=== PATIENT | female | born 1950 | race Caucasian/White ===

== ENCOUNTER 2018-10-06 18:59 | Emergency (ER) | payer MEDICARE ==
[~2018-10-06] VITALS: Ht 172.7 cm; Wt 95.3 kg
[2018-10-06] MEDS ORDERED: FUROSEMIDE 40 MG/4 ML VIAL. IVP ONE (19:30)
[2018-10-06] MEDS ORDERED: DULO60CA6 PO (19:43)
[2018-10-06] MEDS ORDERED: BUPR300T4 PO (19:44)
[2018-10-06] MEDS ORDERED: SIMV20TA3 PO (19:45)
[2018-10-06] MEDS ORDERED: levamir (19:47)
[2018-10-06] MEDS ORDERED: INSU100V SQ (19:47)
[2018-10-06 20:22] LABS: BASO # 0.1 x10^3/uL (0.0-0.2); BASO % 1 % (0-3); EOS # 0.2 x10^3/uL (0.0-0.7); EOS % 3 % (0-3); HEMATOCRIT 32.2 % (36.0-47.0); HEMOGLOBIN 10.5 g/dL (12.0-15.5); LYMPH # 1.3 x10^3/uL (1.0-4.8); LYMPH % 20 % (24-48); MEAN CORPUSCULAR HEMOGLOBIN 27 pg (25-35); MEAN CORPUSCULAR HGB CONC 33 g/dL (31-37); MEAN CORPUSCULAR VOLUME 83 fL (79-100); MONO # 0.4 x10^3/uL (0.0-1.1); MONO % 7 % (0-9); NEUT # 4.7 x10^3uL (1.8-7.7); NEUT % 70 % (31-73); PLATELET COUNT 264 x10^3/uL (140-400); RED BLOOD COUNT 3.88 x10^6/uL (3.50-5.40); RED CELL DISTRIBUTION WIDTH 15.6 % (11.5-14.5); WHITE BLOOD COUNT 6.7 x10^3/uL (4.0-11.0)
--- NOTE | 2018-10-06 20:27 | RAD ---
INDICATION: bilat feet swelling x 3 days COMPARISON: None. TECHNIQUE: Grayscale, color and doppler ultrasound images were obtained of the bilateral lower extremity venous vasculature. RIGHT: No thrombus identified in the common femoral vein, femoral vein, popliteal vein or visualized calf veins. LEFT: No thrombus identified in the common femoral vein, femoral vein, popliteal vein or visualized calf veins. IMPRESSION: 1. No thrombus identified in deep venous system of bilateral lower extremities. Electronically signed by: Eric Redd MD (10/06/2018 8:24 PM) [facility]
--- NOTE | 2018-10-06 20:31 | PHYS DOC ---
Past Medical History Past Medical History: Anxiety, Depression, Diabetes-Type II, High Cholesterol Additional Past Medical Histor: chronic knee pain Past Surgical History: No Surgical History Alcohol Use: None Drug Use: None Adult General Chief Complaint Chief Complaint: LOWER EXTREMITY SWELLING HPI HPI 68-year-old female presents with lower extremity edema. She states that this is been ongoing for a couple of days. States it's worse today. She denies any shortness of breath. She denies dyspnea on exertion. She denies any chest pain. She states both feet seemed to be swollen equally. She states it seems like maybe the right calf is more swollen than the left. She does take blood pressure medicine but it's protective for her kidney secondary to her diabetes. She's not had a history of high blood pressure. Review of Systems Review of Systems Constitutional: Denies fever or chills [] Eyes: Denies change in visual acuity, redness, or eye pain [] HENT: Denies nasal congestion or sore throat [] Respiratory: Denies cough or shortness of breath [] Cardiovascular: No additional information not addressed in HPI [] GI: Denies abdominal pain, nausea, vomiting, bloody stools or diarrhea [] : Denies dysuria or hematuria [] Musculoskeletal: Per history of present illness[] Integument: Denies rash or skin lesions [] Neurologic: Denies headache, focal weakness or sensory changes [] Endocrine: Denies polyuria or polydipsia [] All other systems were reviewed and found to be within normal limits, except as documented in this note. Current Medications Current Medications Current Medications Medications (Trade) Dose Ordered Sig/[facility] Start Time Stop Time Status Last Admin Dose Admin Furosemide (Lasix) 40 mg 1X ONCE 10/06/18 19:30 10/06/18 19:50 DC 10/06/18 20:20 40 MG Ibuprofen (Motrin) 400 mg 1X ONCE 10/06/18 22:00 10/06/18 22:01 DC 10/06/18 21:40 400 MG Allergies Allergies Allergies Coded Allergies Type Severity Reaction Last Updated Verified Sulfa (Sulfonamide Antibiotics) Adverse Reaction Mild n/v 10/06/18 Yes Physical Exam Physical Exam Constitutional: Well developed, well nourished, no acute distress, non-toxic appearance. [] HENT: Normocephalic, atraumatic, bilateral external ears normal, oropharynx moist, no oral exudates, nose normal. [] Eyes: PERRLA, EOMI, conjunctiva normal, no discharge. [] Neck: Normal range of motion, no tenderness, supple, no stridor. [] Cardiovascular:Heart rate regular rhythm, no murmur [] Lungs & Thorax: Bilateral breath sounds clear to auscultation [] Abdomen: Bowel sounds normal, soft, no tenderness, no masses, no pulsatile masses. [] Skin: Warm, dry, no erythema, no rash. [] Back: No tenderness, no CVA tenderness. [] Extremities: Trace lower extremity edema equal bilaterally the right calf is slightly swollen compared to the left. [] Neurologic: Alert and oriented X 3, normal motor function, normal sensory function, no focal deficits noted. [] Psychologic: Anxious. [] Current Patient Data Vital Signs Vital Signs Date Time Temp Pulse Resp B/P (MAP) Pulse Ox O2 Delivery O2 Flow Rate FiO2 10/06/18 21:15 102 20 188/92 (124) 93 Room Air 10/06/18 19:10 98.1 98.1 Lab Values Laboratory Tests Test 10/06/18 20:14 White Blood Count 6.7 x10^3/uL (4.0-11.0) Red Blood Count 3.88 x10^6/uL (3.50-5.40) Hemoglobin 10.5 g/dL (12.0-15.5) L Hematocrit 32.2 % (36.0-47.0) L Mean Corpuscular Volume 83 fL (79-100) Mean Corpuscular Hemoglobin 27 pg (25-35) Mean Corpuscular Hemoglobin Concent 33 g/dL (31-37) Red Cell Distribution Width 15.6 % (11.5-14.5) H Platelet Count 264 x10^3/uL (140-400) Neutrophils (%) (Auto) 70 % (31-73) Lymphocytes (%) (Auto) 20 % (24-48) L Monocytes (%) (Auto) 7 % (0-9) Eosinophils (%) (Auto) 3 % (0-3) Basophils (%) (Auto) 1 % (0-3) Neutrophils # (Auto) 4.7 x10^3uL (1.8-7.7) Lymphocytes # (Auto) 1.3 x10^3/uL (1.0-4.8) Monocytes # (Auto) 0.4 x10^3/uL (0.0-1.1) Eosinophils # (Auto) 0.2 x10^3/uL (0.0-0.7) Basophils # (Auto) 0.1 x10^3/uL (0.0-0.2) Sodium Level 142 mmol/L (136-145) Potassium Level 3.2 mmol/L (3.5-5.1) L Chloride Level 104 mmol/L (98-107) Carbon Dioxide Level 26 mmol/L (21-32) Anion Gap 12 (6-14) Blood Urea Nitrogen 16 mg/dL (7-20) Creatinine 1.0 mg/dL (0.6-1.0) Estimated GFR (Cockcroft-Gault) 55.1 BUN/Creatinine Ratio 16 (6-20) Glucose Level 153 mg/dL (70-99) H Calcium Level 8.5 mg/dL (8.5-10.1) Total Bilirubin 0.4 mg/dL (0.2-1.0) Aspartate Amino Transferase (AST) 15 U/L (15-37) Alanine Aminotransferase (ALT) 15 U/L (14-59) Alkaline Phosphatase 72 U/L (46-116) Troponin I Quantitative < 0.017 ng/mL (0.000-0.055) AF-Kkz-H-Type Natriuretic Peptide 196 pg/mL (0-124) H Total Protein 6.5 g/dL (6.4-8.2) Albumin 3.0 g/dL (3.4-5.0) L Albumin/Globulin Ratio 0.9 (1.0-1.7) L Laboratory Tests 10/06/18 20:14 Laboratory Tests 10/06/18 20:14 EKG EKG [] Radiology/Procedures Radiology/Procedures [] Impressions: PROCEDURE: VENOUS LOWER EXT BILATERAL INDICATION: bilat feet swelling x 3 days COMPARISON: None. TECHNIQUE: Grayscale, color and doppler ultrasound images were obtained of the bilateral lower extremity venous vasculature. RIGHT: No thrombus identified in the common femoral vein, femoral vein, popliteal vein or visualized calf veins. LEFT: No thrombus identified in the common femoral vein, femoral vein, popliteal vein or visualized calf veins. IMPRESSION: 1. No thrombus identified in deep venous system of bilateral lower extremities. Course & Med Decision Making Course & Med Decision Making Pertinent Labs and Imaging studies reviewed. (See chart for details) [] Dragon Disclaimer Dragon Disclaimer This electronic medical record was generated, in whole or in part, using a voice recognition dictation system. Departure Departure Impression: Primary Impression: Peripheral edema Disposition: HOME, SELF-CARE Condition: IMPROVED Referrals: LINDA SANCHEZ DO (PCP) Patient Instructions: Peripheral Edema Additional Instructions: Return to the emergency department with any new or concerning symptoms CODY MILLAN DO Oct 06, 2018 20:31
[2018-10-06 20:33] LABS: CALCIUM 8.5 mg/dL (8.5-10.1); GFR 55.1; POTASSIUM 3.2 mmol/L (3.5-5.1)
[2018-10-06 20:38] LABS: ALBUMIN/GLOBULIN RATIO 0.9 (1.0-1.7); TOTAL BILIRUBIN 0.4 mg/dL (0.2-1.0); TOTAL PROTEIN 6.5 g/dL (6.4-8.2)
[2018-10-06 21:15] VITALS: BP 188/92
[2018-10-06] MEDS ORDERED: IBUPROFEN 400 MG TABLET. PO ONE (22:00)
--- NOTE | 2018-10-07 07:08 | EKG ---
[facility] [address] [place] [address] Test Date: 2018-10-06 Test Time: 19:32:39 Pat Name: CHAPIS REDD Department: Room: Gender: F Integration Lead: : 1950 Requested By: CODY MILLAN Order Number: [id number] Reading MD: Lamberto Murray MD Measurements Intervals [place] Rate: 100 P: 15 MA: 124 QRS: 63 QRSD: 94 T: 39 QT: 356 QTc: 462 Interpretive Statements SINUS TACHYCARDIA Electronically Signed On 10-18-2018 10:04:14 CDT by Lamberto Murray MD
== END 2018-10-06 22:00 | disposition home or self-care (01) ==
LOC: ER 18:59
DX: R60.0 Localized edema (principal); F41.9 Anxiety disorder, unspecified; F32.9 Major depressive disorder, single episode, unspecified; E11.9 Type 2 diabetes mellitus without complications; E78.00 Pure hypercholesterolemia, unspecified; G89.29 Other chronic pain; Z88.2 Allergy status to sulfonamides
CPT/HCPCS: 36415; 80053; 83880; 84484; 85025; 93005; 93970; 96374; 99284; J1940